=== PATIENT | male | born 1990 | race Caucasian/White ===

== ENCOUNTER 2023-04-18 00:45 | Emergency (ER) | payer OTHER ==
[2023-04-18 00:59] VITALS: RESP 22; TEMP 98; O2SAT 98
[2023-04-18] MEDS ORDERED: TORAdol 30 mg Injection IM ONE (01:05)
[2023-04-18] MEDS ORDERED: TORAdol 30 mg Injection ONE (01:07)
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
[2023-04-18 01:36] VITALS: BP 138/84; PULSE 84
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
== END 2023-04-18 01:43 | disposition home or self-care (01) ==
LOC: ED 00:45
DX: S83.91XA Sprain of unspecified site of right knee, initial encounter (principal); V28.49XA Other motorcycle driver injured in noncollision transport accident in traffic accident, initial encounter; Z79.01 Long term (current) use of anticoagulants; Z79.891 Long term (current) use of opiate analgesic; Z28.310 Unvaccinated for COVID-19
CPT/HCPCS: 73562; 96372; 99283; J1885